=== PATIENT | female | born 1970 | race Caucasian/White ===

== ENCOUNTER 2020-10-29 11:08 | Outpatient (REF) | payer MEDICARE, MEDICAID, SELFPAY ==
--- NOTE | ~2020-10-29 | XR_ITS ---
EXAMINATION: XR HIP, LEFT CLINICAL INFORMATION: Epilepsy COMPARISON: None TECHNIQUE: Two views of the left hip. FINDINGS: No acute fracture or dislocation. Femoral head is spherical. Hip joint space preserved. Small acetabular osteophytes. Soft tissues unremarkable. XR/XR hip LT min 2V IMPRESSION: No acute fracture or dislocation. Small acetabular osteophytes.
== END 2020-10-29 11:09 | disposition home or self-care (01) ==
LOC: HO.XRAY 11:08
PROVIDERS: PCP Internal Medicine; Visit Provider Psychiatry & Neurology Neurology
DX: G40.909 Epilepsy, unspecified, not intractable, without status epilepticus (principal)
CPT/HCPCS: 73502

== ENCOUNTER 2021-09-18 15:59 | Emergency (ER) | payer MEDICARE, MEDICAID, SELFPAY ==
--- NOTE | ~2021-09-18 | CT_ITS ---
EXAMINATION: CT ABDOMEN AND PELVIS WITH CONTRAST CLINICAL INFORMATION: LLQ abd pain. rad to L flank COMPARISON: 06/03/2006 TECHNIQUE: Multidetector volumetric imaging was performed from the superior aspect of the liver through the pubic symphysis following administration of 100 mL Omnipaque 300 intravenous contrast. Sagittal and coronal reformatted images were obtained on the technologist workstation.. This CT examination was performed using dose optimization techniques as appropriate, variously including the following: *Automated exposure control *Adjustment of mA and/or kV according to patient size (this includes techniques or standardized protocols for targeted exams where dose is matched to indication/reason for exam; i.e. extremities or head) *Use of iterative reconstruction technique DLP: 484 mGy-cm FINDINGS: LUNG BASES: The visualized lung bases are unremarkable. LIVER, GALLBLADDER, AND BILIARY TREE: The liver is normal in size, shape, and attenuation. No focal hepatic lesion or intrahepatic biliary ductal dilatation is present. Common bile duct is prominent likely related to the postcholecystectomy state. No obvious radiopaque filling defects within the common bile duct which measures up to 1.5 cm. PANCREAS: There is pancreatic ductal prominence pancreatic duct measuring up to 0.5 cm in maximal diameter. 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 SPLEEN: Unremarkable. ADRENAL GLANDS: Unremarkable. KIDNEYS AND URETERS: The kidneys are normal in size, shape, and attenuation. No hydronephrosis, hydroureter, or calculi seen. No perinephric stranding. BLADDER: Unremarkable. GASTROINTESTINAL TRACT: The small and large bowel are unremarkable. The appendix is nonvisualized and may be surgically absent. ABDOMINAL WALL: Nonspecific ill-defined thickening along the anterior abdominal wall in the periumbilical region. There is likely overlying surgical changes in this location. This could be clinically correlated. This had a more normal appearance on the 2005 study. LYMPHOVASCULAR STRUCTURES: No lymphadenopathy. The aorta is unremarkable. PELVIC VISCERA: Surgically absent OSSEOUS STRUCTURES: Unremarkable. CT/CT abdomen pelvis w con IMPRESSION: I do not appreciate any acute intra-abdominal process. There is a ill-defined soft tissue prominence along the anterior abdominal wall in the periumbilical region possibly representing scarring or sequela of prior hernia repair. This could be clinically correlated.
[2021-09-18 16:41] VITALS: BP 120/77; PULSE 84; RESP 16; TEMP 37; O2SAT 96; BMI 22.4
[2021-09-18 16:53] LABS: Appearance Urine CLEAR; Color Urine YELLOW; Glucose Urine UA NEG (NEG); Leukocyte Esterase Urine NEG (NEG); Nitrite Urine NEG (NEG); PH 6.5 (5.0-8.0); UACC Culture Trigger NO; Urine Blood TRACE (NEG); Urine Ketones NEG (NEG); Urine Protein NEG (NEG-TRACE)
[2021-09-18 17:22] LABS: Amorphous Sediment Urine TRACE /LPF; Mucus Urine TRACE /LPF; RBC Urine 0-2 /HPF (0); Squamous Epithelial Cell Urine 1+ /LPF; WBC Urine 0 /HPF (0-4)
[2021-09-18 17:59] VITALS: BP 125/88; PULSE 66; RESP 16; TEMP 36.6; O2SAT 99
[2021-09-18] MEDS: Ketorolac Tromethamine 15 MG/ML VIAL IVPUSH (18:29)
[2021-09-18] MEDS: 0.9 % Sodium Chloride 1,000 ML 999 ML IV (18:29)
--- NOTE | 2021-09-18 18:32 | ED_ITS ---
HPI - General Adult General Chief complaint: General Medical Stated complaint: groin pain Time Seen by Provider: 09/18/21 17:53 Source: patient Mode of arrival: ambulatory Limitations: no limitations History of Present Illness HPI narrative: 51-year-old female with past medical history of anxiety, depression, kidney stones, substance abuse in remission, presenting to the ED complaining of LLQ/left groin pain since this morning. Reports pain is constant, denies radiation. Denies fever, chills, nausea, vomiting, diarrhea, dysuria/hematuria, vaginal bleeding/discharge Onset (ago): hour(s) Related Data Allergies Allergy/AdvReac Type Severity Reaction Status Date / Time butalbital [From FIORINAL] Allergy Severe SWELLING Verified 09/18/21 18:28 lidocaine [LIDOCAINE] AdvReac Intermediate TACHYCARDIA Verified 09/18/21 18:28 AT DENTIST From MIDRIN Allergy Severe SWELLING/BLACKED Uncoded 04/19/20 16:33 OUT From NORGESIC FORTE Allergy Severe SWELLING Uncoded 04/19/20 16:33 From ROCEPHIN Allergy Unknown ANAPHYLAXIS Uncoded 04/19/20 16:33 MIDRIN Allergy Unknown anaphylaxis Uncoded 11/12/18 00:00 NORGEC FORTE Allergy Unknown anaphylaxis Uncoded 11/12/18 00:00 ROCEPHEN Allergy Unknown anaphylaxis Uncoded 11/12/18 00:00 Review of Systems Review of Systems: Constitutional: No Fever, No Chills, No Fatigue, No Malaise ENT/Mouth: No Ear Pain, No Nasal Congestion, No sore throat, No Rhinorrhea, No Swallowing Difficulty Eyes: No Eye Pain, No Swelling, No Redness, No Discharge Cardiovascular: No Chest Pain, No SOB, No Palpitations Respiratory: No Cough, No Sputum, No Dyspnea Gastrointestinal: No Nausea, No Vomiting, No Diarrhea, No Constipation, + Abdominal pain Genitourinary: No irregular bleeding, No Dysuria, No Hematuria, No Urinary Incontinence, No Urgency, + Flank Pain, No Urinary Flow Changes Musculoskeletal: No joint pain, No Myalgias, No Joint Swelling Skin: No Skin Lesions, No rash Neuro: No Weakness, No Headache Yes all other systems are reviewed and are negative PMFSH Past Medical History Attestation statement: The following information was validated with the patient. Medical History Anxiety Depression Kidney stones Substance abuse in remission Social History Social History Advance Directives: No Advance Directives Information Provided: No Physical Exam ED Vital Signs: Vital Signs - 24 hr 09/18/21 16:41 09/18/21 17:59 09/18/21 19:21 Temperature 98.6 F 97.8 F 97.7 F Pulse Rate 84 66 53 Respiratory Rate 16 16 16 Blood Pressure 120/77 125/88 138/93 H Pulse Oximetry 96 99 BMI result Body Mass Index 22.4 Const General: cooperative, healthy appearing, no acute distress and well developed Orientation/consciousness: patient oriented x3 Limitations: no limitations HENMT Head: Yes normal to inspection and Yes atraumatic Ears: hearing grossly normal bilaterally General nose exam: Normal external nose present Face and sinus: Yes normal facial exam Eyes General: appearance normal, both eyes and all related structures EOM: EOMs intact bilaterally Neck Neck: Yes normal visual inspection and Yes no meningeal signs Resp Effort & Inspection: normal respiratory effort and no respiratory distress Cardio Rate: regular rate Heart sounds: S1 normal heart sound present and S2 normal heart sound present GI Inspection: Yes normal to inspection Palpation (GI): Soft to palpation, Tenderness to palpation present (GI) in the LLQ and suprapubicly (left), no guarding and not rigid General: Yes CVA tenderness on the left Back/Spine/Pelvis Back: CVA tenderness Skin Rashes: no rashes Wounds: no wounds Neuro General: patient oriented x3 and no meningeal signs Gait exam (Neuro): Normal gait present Extrem General: Yes normal to inspection Course Course Course Narrative: -2043--no leukocytosis. AST/ALT and alk-phos mildly elevated, labs otherwise unremarkable -UA not infected CT abdomen pelvis w con IMPRESSION: I do not appreciate any acute intra-abdominal process. There is a ill-defined soft tissue prominence along the anterior abdominal wall in the periumbilical region possibly representing scarring or sequela of prior hernia repair. This could be clinically correlated. --results discussed with patient. 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 Tenderness elicited on movement of left hip > ?groin strain vs referred pain from pelvic region > offered patient ultrasound to eval for possible cyst or ?torsion however patient refused and would like to go home. Discussed worrisome signs and symptoms and strict return precautions and risk of not obtaining study. Patient verbalized understanding and would like to go. Will follow up with OBGYN/PCP Medical Decision Making MDM Narrative Medical decision making narrative: 51-year-old female with past medical history of anxiety, depression, kidney stones, substance abuse in remission, presenting to the ED complaining of LLQ/left groin pain since this morning. On exam vital signs stable, NAD/nontoxic appearing, abdomen soft with LLQ/L suprapubic ttp and L CVAT. No rebound or guarding. Concern for renal stone vs diverticulitis vs STI vs pyelo vs ?ovarian cyst. Lower concern for ovarian torsion/appendicitis Plan: Labs, UA, CT AP, IVF, pain management, re-evaluate Lab Data Result diagrams: 09/18/21 18:26 09/18/21 18:26 Labs: Lab Results 09/18/21 09/18/21 09/18/21 Range/Units 16:48 18:26 18:26 WBC 7.5 (4.8-10.8) X10*3/uL RBC 4.06 L (4.20-5.50) X10*6/uL Hgb 12.9 (12.0-16.0) g/dl Hct 37.7 (37.0-47.0) % MCV 92.9 (80.0-98.0) fL MCH 31.8 (27.0-33.0) pg MCHC 34.2 (31.0-35.0) g/dl RDW 12.7 (11.0-16.0) % Plt Count 168 (160-400) X10*3/uL MPV 10.1 (9.4-12.3) fL Immature Gran % (Auto) 0.4 (0.0-0.4) % Neut % (Auto) 35.9 L (45-73) % Lymph % (Auto) 52.4 H (20-40) % [place] % (Auto) 6.0 (2-11) % Eos % (Auto) 4.9 H (0-4) % Baso % (Auto) 0.4 (0-2) % Lymph # (Auto) 3.9 (1.2-4.9) X10*3/uL [place] # (Auto) 0.5 (0.1-1.2) X10*3/uL Eos # (Auto) 0.4 (0.0-0.4) X10*3/uL Baso # (Auto) 0.0 (0.0-0.2) X10*3/uL Abs Immat Gran (auto) 0.03 (0.00-0.03) X10*3/uL Absolute Neuts (auto) 2.7 (2.0-8.3) x10*3/uL Absolute Nucleated RBC 0.000 (0.0-0.012) X10*3/uL Nucleated RBC % (auto) 0.0 (0.0-0.2) /100WBC Sodium 140 (135-145) mmol/L Potassium 4.4 (3.3-5.1) mmol/L Chloride 103 (96-108) mmol/L Carbon Dioxide 31 H (22-29) mmol/L Anion Gap 10 L (12-20) BUN 12 (9-16) mg/dL Creatinine 0.75 (0.5-1.4) mg/dL Estim Creat Clear Calc 87.2 Estimated GFR > 60 Random Glucose 82 (60-115) mg/dL Calcium 9.6 (8.4-10.2) mg/dL Magnesium 2.0 (1.6-2.6) mg/dL Total Bilirubin 0.3 (0.0-1.0) mg/dL Direct Bilirubin < 0.2 (0.0-0.5) mg/dL AST 32 H (5-31) U/L ALT 37 H (0-31) U/L Alkaline Phosphatase 134 H (39-117) U/L Total Protein 6.8 (6.5-8.0) g/dL Albumin 4.3 (3.5-5.0) g/dL Lipase 22 (8-78) U/L Urine Color YELLOW Urine Appearance CLEAR Urine pH 6.5 (5.0-8.0) Ur Specific [place] 1.010 (1.005-1.025) Urine Protein NEG (NEG-TRACE) MG/DL Urine Glucose (UA) NEG (NEG) MG/DL Urine Ketones NEG (NEG) MG/DL Urine Blood TRACE (NEG) Urine Nitrite NEG (NEG) Ur Leukocyte Esterase NEG (NEG) Urine RBC 0-2 (0) /HPF Urine WBC 0 (0-4) /HPF Ur Squamous Epith Cells 1+ /LPF Amorphous Sediment TRACE /LPF Urine Bacteria NONE /LPF Urine Mucus TRACE /LPF Discharge Plan Discharge Clinical Impression: Abdominal pain Qualifiers: Abdominal location: left lower quadrant Qualified Code(s): R10.32 - Left lower quadrant pain Patient Disposition: Home, Self-Care Instructions: Abdominal Pain (ED) Additional Instructions: Your blood work was reassuring today Your urine was unremarkable Your CT scan showed nonspecific swelling along your anterior abdominal wall likely from your mesh/hernia repair Your pain could be from her ovaries, this needs to be further evaluated. IF PAIN PERSISTS/WORSENS, BECOMES MORE CONSTANT, YOU HAVE FEVER, NAUSEA/VOMITING RETURN TO THE ED IMMEDIATELY You need to follow-up with your doctor Referrals: Brii Miller MD [Primary Care Provider] - 2 days Negro Petit MD [Physician] - 2 days Stand Alone Forms: Work/School Release
[2021-09-18 18:36] LABS: MANUAL DIFF FLAG NO
[2021-09-18 18:40] LABS: Basophils Percent Auto 0.4 % (0-2); Eosinophils Absolute Auto 0.4 X10*3/uL (0.0-0.4); Eosinophils Percent Auto 4.9 % (0-4); Hematocrit 37.7 % (37.0-47.0); Hemoglobin 12.9 g/dl (12.0-16.0); Imm Gran Abs Auto 0.03 X10*3/uL (0.00-0.03); Imm Gran Pct Auto 0.4 % (0.0-0.4); Lymphocytes Absolute Auto 3.9 X10*3/uL (1.2-4.9); Lymphocytes Percent Auto 52.4 % (20-40); Mean Corpuscular HGB Conc 34.2 g/dl (31.0-35.0); Mean Corpuscular Hemoglobin 31.8 pg (27.0-33.0); Mean Corpuscular Volume 92.9 fL (80.0-98.0); Mean Platelet Volume 10.1 fL (9.4-12.3); Monocytes Absolute Auto 0.5 X10*3/uL (0.1-1.2); Neutrophils Absolute Auto 2.7 x10*3/uL (2.0-8.3); Neutrophils Percent Auto 35.9 % (45-73); Platelet Count 168 X10*3/uL (160-400); Red Blood Count 4.06 X10*6/uL (4.20-5.50); Red Cell Distribution Width 12.7 % (11.0-16.0); White Blood Count 7.5 X10*3/uL (4.8-10.8)
[2021-09-18 19:01] LABS: Alanine Aminotransferase 37 U/L (0-31); Albumin Level 4.3 g/dL (3.5-5.0); Alkaline Phosphatase 134 U/L (39-117); Anion Gap 10 (12-20); Aspartate Amino Transferase 32 U/L (5-31); Bilirubin Direct < 0.2 mg/dL (0.0-0.5); Bilirubin Total 0.3 mg/dL (0.0-1.0); Blood Urea Nitrogen 12 mg/dL (9-16); Calcium 9.6 mg/dL (8.4-10.2); Carbon Dioxide 31 mmol/L (22-29); Chloride 103 mmol/L (96-108); Creatinine Clr Calc Pharmacy 87.2; Estimated Glomerular Filt Rate > 60; Glucose Random 82 mg/dL (60-115); Lipase 22 U/L (8-78); Potassium 4.4 mmol/L (3.3-5.1); Sodium 140 mmol/L (135-145); Total Protein 6.8 g/dL (6.5-8.0)
[2021-09-18 19:21] VITALS: BP 138/93; PULSE 53; RESP 16; TEMP 36.5
[2021-09-18] MEDS: iohexoL 350 MG/ML 100 ML INFUS..BTL IV (19:46)
[2021-09-18 21:11] VITALS: BP 146/99; PULSE 68; RESP 16; TEMP 36.4; O2SAT 99
== END 2021-09-18 21:22 | disposition home or self-care (01) ==
PROVIDERS: Physician Assistant; Emergency Provider Internal Medicine; PCP Internal Medicine
DX: R10.32 Left lower quadrant pain (principal); Z87.442 Personal history of urinary calculi
CPT/HCPCS: 36415; 74177; 80048; 80076; 81001; 83690; 83735; 85025; 96361; 96374; 99284; J1885; Q9967

== ENCOUNTER 2021-10-29 10:40 | Outpatient (REF) | payer MEDICARE, MEDICAID, SELFPAY ==
--- NOTE | ~2021-10-29 | CT_ITS ---
EXAMINATION: CT HEAD WITHOUT CONTRAST CLINICAL INFORMATION: Epilepsy COMPARISON: None TECHNIQUE: Contiguous axial imaging was performed from the skull base to vertex without intravenous administration of contrast. This CT examination was performed using dose optimization techniques as appropriate, variously including the following: *Automated exposure control *Adjustment of mA and/or kV according to patient size (this includes techniques or standardized protocols for targeted exams where dose is matched to indication/reason for exam; i.e. extremities or head) *Use of iterative reconstruction technique DLP: 750 mGy-cm FINDINGS: There is no evidence of acute intracranial hemorrhage or territorial infarction. No abnormal mass effect or midline shift is seen. Colin to white matter differentiation is well preserved. No extra-axial fluid collections are identified. The ventricles are normal in size. There is no abnormal attenuation within the brain parenchyma. The osseous structures and soft tissues are normal. The mastoid air cells and visualized portions of the paranasal sinuses are well aerated. CT/CT head/brain wo con IMPRESSION: No acute intracranial process.
== END 2021-10-29 10:41 | disposition home or self-care (01) ==
LOC: HO.CT 10:40
PROVIDERS: Visit Provider Psychiatry & Neurology Neurology
DX: G40.909 Epilepsy, unspecified, not intractable, without status epilepticus (principal)
CPT/HCPCS: 70450

== ENCOUNTER 2023-01-30 11:15 | Emergency (ER) | payer OTHER, SELFPAY ==
--- NOTE | ~2023-01-30 | CT_ITS ---
EXAMINATION: CT HEAD W/O IV CONTRAST CT CERVICAL SPINE W/O IV CONTRAST CLINICAL INFORMATION: History of fall with neck pain. Head strike. COMPARISON: Head CT from 10/29/2021 TECHNIQUE: Head - Contiguous axial imaging of the head was performed from the skull base to the vertex without the administration of intravenous contrast, and axial images are reconstructed at 2 mm and 5 mm slice thickness. Cervical spine - A volumetric, helical CT acquisition of the cervical spine was obtained without contrast; in addition to the standard set of axial images, multiplanar reformatted images were provided in the coronal and sagittal imaging planes. This CT examination was performed using dose optimization techniques as appropriate, variously including the following: *Automated exposure control *Adjustment of mA and/or kV according to patient size (this includes techniques or standardized protocols for targeted exams where dose is matched to indication/reason for exam; i.e. extremities or head) *Use of iterative reconstruction technique DLP: 893 mGy-cm (total) FINDINGS: HEAD: No acute intracranial findings. Colin to white matter differentiation is preserved. No evidence of intracranial hemorrhage, major vascular territory infarction, focal mass effect or midline shift. The ventricles have normal size and configuration. No hydrocephalus or extra-axial fluid collections. The calvarium is intact and the visualized paranasal sinuses, mastoid air cells and middle ear cavities are clear. The temporomandibular joints are normal. The orbits and globes are unremarkable. The small area of opacification in subcutaneous tissues of the left parietal scalp require correlation regarding site of head strike. This could represent minimal edema/hematoma from recent trauma (image 50, series 4). CERVICAL SPINE: The craniocervical junction is normal. The occipital condyles, dens and atlantodental articulation are intact. The vertebral body heights are maintained. No fractures in the anterior or posterior elements. No prevertebral soft tissue edema or soft tissue hematoma. Moderate discovertebral degenerative changes are present at C4-C5, C5-C6, C6-C7 and C7-T1. Facet arthropathy of the cervical spine is predominantly noted at C2-C3 (moderate on the left, severe on the right). The facet arthropathy is mild at C3-C4. There is reversal of lordosis within the degenerated cervical spine. Approximately 0.3 cm of degenerative anterolisthesis at C2-C3 and 0.2 cm anterolisthesis at C3-C4. Multilevel uncovertebral joint hypertrophy with osteophytes causing moderate right-sided neural foraminal stenosis at C5-C6 and C6-C7. Small posterior disc osteophyte complexes are present C5-C6 and C6-C7. Thyroid gland is normal. The examined lung apices are clear. CT/CT cervical spine wo IV con IMPRESSION: * No calvarial fracture or acute intracranial pathology. * No fracture within the degenerated cervical spine. * Moderate multilevel disc degenerative change is present. 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 There is reversal of lordosis of the cervical spine, and mild degenerative anterolisthesis is noted at C2-C3 and C3-C4.
[2023-01-30 11:20] VITALS: BP 109/72; PULSE 83; RESP 18; TEMP 36.9; O2SAT 97; BMI 21.9
--- NOTE | 2023-01-30 11:21 | ED_ITS ---
HPI - Fall General Chief Complaint: Fall Stated Complaint: head inj neck compressed Time Seen by Provider: 01/30/23 12:14 Source: patient Mode of arrival: ambulatory Limitations: no limitations History of Present Illness HPI Narrative: 52-year-old female who presents emergency department for evaluation of head and neck injury. Patient states that morning (01/29/2023) she got up to go to the bathroom. She states that she was sitting on the toilet and she had difficulty urinating so she had to relax, she states this has happened to her before. She then fell asleep on the toilet and fell forward. She describes hyperflexing her neck and striking her head on the pipe of her sink which was closed to her toilet. She is uncertain if she passed out. Since the fall hours she has had severe headache and severe neck pain. She has had no nausea, vomiting or weakness. She states she has been taking Tylenol and ibuprofen with no relief for pain. Patient states she does have a remote history of prescription opiate addiction. She is taking Subutex intramuscularly monthly and states she has been sober for many years. Related Data Allergies Allergy/AdvReac Type Severity Reaction Status Date / Time butalbital [From FIORINAL] Allergy Severe SWELLING Verified 09/18/21 18:28 lidocaine [LIDOCAINE] AdvReac Intermediate TACHYCARDIA Verified 09/18/21 18:28 AT DENTIST From MIDRIN Allergy Severe SWELLING/BLACKED Uncoded 04/19/20 16:33 OUT From NORGESIC FORTE Allergy Severe SWELLING Uncoded 04/19/20 16:33 From ROCEPHIN Allergy Unknown ANAPHYLAXIS Uncoded 04/19/20 16:33 MIDRIN Allergy Unknown anaphylaxis Uncoded 11/12/18 00:00 NORGEC FORTE Allergy Unknown anaphylaxis Uncoded 11/12/18 00:00 ROCEPHEN Allergy Unknown anaphylaxis Uncoded 11/12/18 00:00 Review of Systems Review of Systems: Yes all other systems are reviewed and are negative [facility] Past Medical History [facility] Narrative: Social history: She does smoke cigarettes. She denies alcohol use. She denies drug use Medical History Anxiety Depression Kidney stones Substance abuse in remission Social History Social History Advance Directives: Yes Advance Directives Information Provided: Yes Advance Directives on File: No Physical Exam Vital Signs: Vital Signs: Last Vital Signs Temp 98.4 F 01/30/23 11:20 Pulse 61 01/30/23 12:24 Resp 18 01/30/23 12:24 BP 107/67 01/30/23 12:24 Pulse Ox 96 01/30/23 12:24 O2 Del Method Room Air 01/30/23 12:24 BMI result Body Mass Index 21.9 Const: General: cooperative and no acute distress Orientation/consciousness: oriented to person and oriented to place Limitations: no limitations HEENT: Head: Yes normal to inspection, Yes normocephalic and Yes atraumatic Ears: external ears normal General nose exam: Normal external nose present Face and sinus: Yes normal facial exam Mouth: Normal oral and palatal mucosa present Throat: Yes posterior oropharynx normal Eyes: General: appearance normal, both eyes and all related structures Pupils: Equal, round and reactive pupils present Neck: Other: Patient has tenderness palpation of her cervical spine diffusely and tenderness palpation of her trapezius muscles bilaterally Chest: Chest palpation & inspection: normal inspection of the chest and normal palpation of entire chest wall Resp: Effort & Inspection: normal respiratory effort and able to speak in complete sentences Auscultation: clear to auscultation bilaterally Cardio: Rate: regular rate Rhythm: regular rhythm Heart sounds: S1 normal heart sound present, S2 normal heart sound present and no murmurs GI: Inspection: Yes normal to inspection Palpation (GI): Soft to palpation, nontender and no guarding Auscultation: normal bowel sounds : General: Yes no CVA tenderness Back/Spine/Pelvis: Back: no CVA tenderness Skin: General skin exam: no rashes or lesions noted Neuro: General: oriented to person and oriented to place Cranial nerves: Yes CN's II-XII intact bilaterally and Yes Equal, round and reactive pupils present Cognition (Neuro): normal cognition Motor exam (neuro): 5/5 motor strength present throughout Extrem: General: Yes normal to inspection Psych: Appearance: grossly normal Speech and movement: Normal speech and movement present Affect: normal affect Attitude: cooperative Course Course Course Narrative: This is an RME: Additional HPI, ROS, PE not included below will be deferred to primary provider. 52 year old female presents w/ head and neck injury X1 day patient was sitting on the toilet fell asleep fell forward face first and hitting her head and immediatly started having severe neck pain. Worse w/ move ment better at rest. Not on thinners. Unclear LOC PE- TTP to midline neck, and to paraspinous muscles. Plan- basic labs, ct scans Medications Administered Discontinued Medications Generic Name Dose Route Start Last Admin Trade Name Adore PRN Reason Stop Dose Admin Ketorolac Tromethamine 30 mg 01/30/23 11:21 01/30/23 13:10 Ketorolac Tromethamine 15 Mg/Ml Vial IM 01/30/23 11:22 Not Given ONCE ONE Ketorolac Tromethamine 15 mg 01/30/23 12:59 01/30/23 13:04 Ketorolac Tromethamine 15 Mg/Ml Vial IVPUSH 01/30/23 13:00 15 mg ONCE STA Administration Lidocaine 1 patch 01/30/23 11:23 01/30/23 13:11 Lidocaine 4 % Patch Adh..Patch TRANSDERMA 01/30/23 11:24 Not Given ONCE ONE Protocol Morphine Sulfate 4 mg 01/30/23 13:32 01/30/23 14:12 Morphine Sulfate 4 Mg/Ml Cartridge IVPUSH 01/30/23 13:33 4 mg ONCE STA Administration Protocol Medical Decision Making Medical Decision Making [facility] Narrative: 52-year-old female who presents emergency department for evaluation of headache and neck pain after falling asleep on the toilet and falling forward causing a hyperextension injury to her neck and striking her head on the pipes of the sink in her bathroom. This occurred 2 days prior to evaluation. Patient's exam did reveal significant tenderness palpation of her cervical spine and trapezius muscles bilaterally. Patient was placed in a cervical spine collar. Following tests were ordered on the patient: CBC, CMP, CT scan cervical spine and CT scan of the head without contrast. Patient's pain was treated with Toradol 15 mg IV. 1408: The patient's laboratory evaluation was unremarkable which is reassuring CT scan of the brain and cervical spine revealed no acute fracture or bleed Patient got no relief of her pain with the IV Toradol. I did discuss using opiates, the patient states that she is not concerned about her sobriety and is requesting more pain medications, therefore I ordered morphine 4 mg IV. 1444: Patient is him better the above treatment. Patient states she has also receive Suboxone and Subutex Patient was advised to take Tylenol and ibuprofen for pain and for pain. She was advised to continue taking her Suboxone as well to help with pain management. She was given a work note for 1 week. Differential Diagnosis Differential Diagnoses: The differential diagnosis associated with the presentation includes Differential diagnosis includes was not limited to skull fracture, cerebral bleed, concussion, neck fracture, neck sprain, neck strain Admission/Observation Consideration of admission/observation: Escalation of care including admission/observation considered Lab Data MDM Lab Attestation statement: I reviewed the patient's lab results. My interpretation patient's laboratory evaluation is as follows: CBC was normal. CMP was normal. 01/30/23 12:22 01/30/23 12:22 Labs: Lab Results 01/30/23 01/30/23 Range/Units 12:22 12:22 WBC 5.3 (4.8-10.8) X10*3/uL RBC 4.06 L (4.20-5.50) X10*6/uL Hgb 13.1 (12.0-16.0) g/dl Hct 38.6 (37.0-47.0) % MCV 95.1 (80.0-98.0) fL MCH 32.3 (27.0-33.0) pg MCHC 33.9 (31.0-35.0) g/dl RDW 12.4 (11.0-16.0) % Plt Count 141 L (160-400) X10*3/uL MPV 10.2 (9.4-12.3) fL Immature Gran % (Auto) 0.4 (0.0-0.4) % Neut % (Auto) 56.2 (45-73) % Lymph % (Auto) 33.1 (20-40) % [place] % (Auto) 6.1 (2-11) % Eos % (Auto) 3.6 (0-4) % Baso % (Auto) 0.6 (0-2) % Lymph # (Auto) 1.7 (1.2-4.9) X10*3/uL [place] # (Auto) 0.3 (0.1-1.2) X10*3/uL Eos # (Auto) 0.2 (0.0-0.4) X10*3/uL Baso # (Auto) 0.0 (0.0-0.2) X10*3/uL Abs Immat Gran (auto) 0.02 (0.00-0.03) X10*3/uL Absolute Neuts (auto) 3.0 (2.0-8.3) x10*3/uL Absolute Nucleated RBC 0.000 (0.0-0.012) X10*3/uL Nucleated RBC % (auto) 0.0 (0.0-0.2) /100WBC Sodium 139 (135-145) mmol/L Potassium 3.7 (3.3-5.1) mmol/L Chloride 110 H (96-108) mmol/L Carbon Dioxide 20 L (22-29) mmol/L Anion Gap 13 (12-20) BUN 10 (9-16) mg/dL Creatinine 0.60 (0.5-1.4) mg/dL Estim Creat Clear Calc 107.9 Estimated GFR > 60 Random Glucose 99 (60-115) mg/dL Calcium 9.8 (8.4-10.2) mg/dL Total Bilirubin 0.3 (0.0-1.0) mg/dL AST 22 (5-31) U/L ALT 15 (0-31) U/L Alkaline Phosphatase 83 (39-117) U/L Total Protein 6.4 L (6.5-8.0) g/dL Albumin 3.8 (3.5-5.0) g/dL Independent Interpretation I performed an independent interpretation of an: CT Scan Interpretation: My independent interpretation patient's CT scan of the brain is as follows: No acute fracture, no acute bleed Radiology Impression Discussion of test interpretation with radiology: I have reviewed the radiologist's reading. Radiologist Impression: CT cervical spine and CT scan of the brain wo IV con IMPRESSION: * No calvarial fracture or acute intracranial pathology. * No fracture within the degenerated cervical spine. * Moderate multilevel disc degenerative change is present. 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 There is reversal of lordosis of the cervical spine, and mild degenerative anterolisthesis is noted at C2-C3 and C3-C4. Dictated By:Vasu Parnell MD External Record Review External record reviewed: Other ([place] prescription monitoring program- patient received Subutex, Suboxone and lorazepam) Prescription Management I considered prescription management with: Pain Medication Chronic Conditions Patient?s care impacted by: Other (Remote history of prescription drug use, currently taking Suboxone) Discharge Plan Discharge Clinical Impression: Fall Qualifiers: Encounter type: initial encounter Qualified Code(s): W19.XXXA - Unspecified fall, initial encounter CHI (closed head injury) Qualifiers: Encounter type: initial encounter Qualified Code(s): S09.90XA - Unspecified injury of head, initial encounter Acute neck sprain Qualifiers: Encounter type: initial encounter Qualified Code(s): S13.9XXA - Sprain of joints and ligaments of unspecified parts of neck, initial encounter Patient Disposition: Home, Self-Care Instructions: Cervical Strain (ED) Additional Instructions: Your blood work was normal. The CT scan of your head and neck did not reveal any broken bones or bleeding in your brain which is reassuring. You do have arthritis of your neck based on the CT scan. Take ibuprofen 200 mg pills, 2 pills every 6 hours as needed for pain. Take Tylenol (acetaminophen) 500 mg pills, 2 pills every 6 hours as needed for pain. Take your Suboxone as prescribed, this should help with your pain is well. Morphine is a narcotic medication and can be addicting. If you are concerned about addiction you can ask the pharmacist for less pills or do not get this prescription filled. Apply ice for 15 minutes 4 to 6 times a day the next 2-3 days to help reduce the pain and inflammation of your neck muscles and joints. Follow-up with your doctor in 2 days. Please return to the emergency department if your symptoms get worse or if you develop any symptoms that are concerning to you. Please see the work note Stand Alone Forms: Work/School Release
--- NOTE | 2023-01-30 11:41 | PC.NURSE ---
Pt brought back from triage, possible neck injury, Placed in C-collar for precaution, CT scan at this time.
[2023-01-30 12:24] VITALS: BP 107/67; PULSE 61; RESP 18; O2SAT 96
[2023-01-30 12:26] LABS: MANUAL DIFF FLAG NO
[2023-01-30 12:31] LABS: Basophils Percent Auto 0.6 % (0-2); Eosinophils Absolute Auto 0.2 X10*3/uL (0.0-0.4); Eosinophils Percent Auto 3.6 % (0-4); Hematocrit 38.6 % (37.0-47.0); Hemoglobin 13.1 g/dl (12.0-16.0); Imm Gran Abs Auto 0.02 X10*3/uL (0.00-0.03); Imm Gran Pct Auto 0.4 % (0.0-0.4); Lymphocytes Absolute Auto 1.7 X10*3/uL (1.2-4.9); Lymphocytes Percent Auto 33.1 % (20-40); Mean Corpuscular HGB Conc 33.9 g/dl (31.0-35.0); Mean Corpuscular Hemoglobin 32.3 pg (27.0-33.0); Mean Corpuscular Volume 95.1 fL (80.0-98.0); Mean Platelet Volume 10.2 fL (9.4-12.3); Monocytes Absolute Auto 0.3 X10*3/uL (0.1-1.2); Monocytes Percent Auto 6.1 % (2-11); Neutrophils Percent Auto 56.2 % (45-73); Platelet Count 141 X10*3/uL (160-400); Red Blood Count 4.06 X10*6/uL (4.20-5.50); Red Cell Distribution Width 12.4 % (11.0-16.0); White Blood Count 5.3 X10*3/uL (4.8-10.8)
[2023-01-30 12:42] LABS: Alanine Aminotransferase 15 U/L (0-31); Albumin Level 3.8 g/dL (3.5-5.0); Alkaline Phosphatase 83 U/L (39-117); Anion Gap 13 (12-20); Aspartate Amino Transferase 22 U/L (5-31); Bilirubin Total 0.3 mg/dL (0.0-1.0); Blood Urea Nitrogen 10 mg/dL (9-16); Calcium 9.8 mg/dL (8.4-10.2); Carbon Dioxide 20 mmol/L (22-29); Chloride 110 mmol/L (96-108); Creatinine Clr Calc Pharmacy 107.9; Estimated Glomerular Filt Rate > 60; Glucose Random 99 mg/dL (60-115); Potassium 3.7 mmol/L (3.3-5.1); Sodium 139 mmol/L (135-145); Total Protein 6.4 g/dL (6.5-8.0)
[2023-01-30] MEDS: Ketorolac Tromethamine 15 MG/ML VIAL IVPUSH (13:04)
--- NOTE | 2023-01-30 13:11 | PC.NURSE ---
Pt medicated via IV ketorolac, Previous order changed per receiving doctor and IV established, Lidocaine not given due to pain being located under C-collar.
[2023-01-30] MEDS: Morphine Sulfate 4 MG/ML CARTRIDGE IVPUSH (14:12)
== END 2023-01-30 15:16 | disposition home or self-care (01) ==
PROVIDERS: Physician Assistant; Emergency Provider Emergency Medicine Emergency Medical Services; PCP Internal Medicine
DX: S09.90XA Unspecified injury of head, initial encounter (principal); S13.9XXA Sprain of joints and ligaments of unspecified parts of neck, initial encounter; W18.11XA Fall from or off toilet without subsequent striking against object, initial encounter; Y93.89 Activity, other specified; Y92.031 Bathroom in apartment as the place of occurrence of the external cause; Y99.9 Unspecified external cause status
CPT/HCPCS: 36415; 70450; 72125; 80053; 85025; 96374; 96375; 99283; 99284; J1885; J2270